=== PATIENT | female | born 1980 | race Hispanic/Latino ===

== ENCOUNTER 2024-09-15 18:41 | Inpatient (IN) | payer OTHER ==
[~2024-09-15] VITALS: Ht 162.6 cm; Wt 71.2 kg
[2024-09-15 19:27] LABS: AMNISURE ROM TEST POSITIVE
[2024-09-15] MEDS ORDERED: LACTATED RINGER'S 1,000 ML IV SCH (19:45)
[2024-09-15] MEDS ORDERED: CALCIUM CARBONATE 500 MG CHEW PO PRN ×2 (19:45→22:15)
[2024-09-15] MEDS ORDERED: LACTATED RINGER'S 1,000 ML IV PRN (19:45)
[2024-09-15] MEDS ORDERED: MAGNESIUM HYDROXIDE/AL HYDROX 30 ML CUP PO PRN ×2 (19:45→22:15)
[2024-09-15 19:50] LABS: HEMATOCRIT 41.1 % (35.0-50.0); HEMOGLOBIN 14.1 g/dL (12.0-18.0); MCH 30.3 (27-36); MCHC 34.2 g/dl (30-36); MCV 88.5 fl (81-99); RBC 4.64 M/ul (4.3-5.7)
[2024-09-15 19:57] VITALS: BP 121/82
[2024-09-15] MEDS ORDERED: OXYTOCIN/0.9 % SODIUM CHLORIDE 500 ML IV SCH ×3 (20:15→22:30)
[2024-09-15 20:19] LABS: ABO O; ANTIBODY SCREEN NEGATIVE; RH POSITIVE
[2024-09-15] MEDS ORDERED: TRANEXAMIC ACID IN NACL,ISO-OS 100 ML IV ONE (21:39)
[2024-09-15] MEDS ORDERED: MAGNESIUM HYDROXIDE 30 ML UDC PO PRN (22:15)
[2024-09-15] MEDS ORDERED: WITCH HAZEL/GLYCERIN 1 EA PAD TOP PRN (22:15)
[2024-09-15] MEDS ORDERED: LIDOCAINE 2% VISCOUS 6 ML SYR TOP ONE ×2 (22:15)
[2024-09-15] MEDS ORDERED: HYDROCORTISONE ACETATE 25 MG SUPP PR PRN (22:15)
[2024-09-15] MEDS ORDERED: BENZOCAINE 60 ML AEROSOL TOP PRN (22:15)
[2024-09-15] MEDS ORDERED: IBUPROFEN 600 MG TAB PO PRN (22:15)
[2024-09-15] MEDS ORDERED: ACETAMINOPHEN 325 MG TAB PO PRN (22:15)
[2024-09-15 23:48] LABS: AMPHETAMINES, URINE NEGATIVE (NEGATIVE); BARBITURATES, URINE NEGATIVE (NEGATIVE); BENZODIAZEPINE, URINE NEGATIVE (NEGATIVE); BUPRENORPHINE, URINE NEGATIVE (NEGATIVE); CANNABINOID, URINE NEGATIVE (NEGATIVE); COCAINE, URINE NEGATIVE (NEGATIVE); ECSTASY, URINE NEGATIVE (NEGATIVE); FENTANYL, URINE NEGATIVE (NEGATIVE); METHADONE, URINE NEGATIVE (NEGATIVE); OPIATES, URINE NEGATIVE (NEGATIVE); OXYCODONE, URINE NEGATIVE (NEGATIVE); PHENCYCLIDINE, URINE NEGATIVE (NEGATIVE)
[2024-09-16] MEDS ORDERED: METHYLERGONOVINE MALEATE 0.2 MG TAB PO SCH
[2024-09-16] MEDS ORDERED: fentaNYL citrate 100 MCG/2 ML VIAL IV STA (00:37)
[2024-09-16 01:14] LABS: HEMATOCRIT 33.4 % (35.0-50.0); HEMOGLOBIN 11.3 g/dL (12.0-18.0); MCH 29.8 (27-36); MCHC 33.9 g/dl (30-36); MCV 87.9 fl (81-99); PLATELET COUNT 204 K/uL (140-440); RDW 13.9 (10.5-15.0)
[2024-09-16] MEDS ORDERED: METHYLERGONOVINE MALEATE 0.2 MG/ML AMP IM ONE (01:15)
[2024-09-16 01:28] LABS: PARTIAL THROMBOPLASTIN TIME 25.5 Sec (22.9-41.3)
[2024-09-16 01:29] LABS: INR 0.98 (0.80-1.30); PROTIME 12.9 Sec (11.2-14.2)
[2024-09-16 01:37] LABS: ABO O; RH POSITIVE
[2024-09-16 01:45] LABS: IS CROSSMATCH COMPATIBLE
[2024-09-16 01:52] LABS: LYMPHOCYTES, MANUAL DIFF 2; MONOCYTES, MANUAL DIFF 6; NEUTROPHILS, MANUAL DIFF 92
[2024-09-16 04:04] LABS: BASOPHILS 0.1 % (0-2); HEMATOCRIT 30.6 % (35.0-50.0); HEMOGLOBIN 10.5 g/dL (12.0-18.0); LYMPHOCYTES 4.1 % (24-44); MCH 30.4 (27-36); MCHC 34.3 g/dl (30-36); MCV 88.5 fl (81-99); MONOCYTES 5.1 % (0-12); NEUTROPHILS 90.7 % (39-80); PLATELET COUNT 183 K/uL (140-440); RBC 3.46 M/ul (4.3-5.7)
[2024-09-16 04:13] LABS: PARTIAL THROMBOPLASTIN TIME 27.1 Sec (22.9-41.3)
[2024-09-16 04:14] LABS: INR 1.02 (0.80-1.30); PROTIME 13.3 Sec (11.2-14.2)
[2024-09-16] MEDS ORDERED: SENNOSIDES/DOCUSATE 1 EA TAB PO SCH (09:00)
[2024-09-17 05:50] LABS: HEMOGLOBIN 9.3 g/dL (12.0-18.0); MCH 30.5 (27-36); MCHC 34.6 g/dl (30-36); MCV 88.3 fl (81-99); RBC 3.06 M/ul (4.3-5.7); RDW 14.3 (10.5-15.0)
== END 2024-09-17 11:05 | disposition home or self-care (01) | DRG 807 ==
LOC: FBCO 18:41 → FBC 19:09
PROVIDERS: ADMIT Advanced Practice Midwife; ATTEND Advanced Practice Midwife
PROC: 10E0XZZ Delivery of Products of Conception, External Approach (ICD-10-PCS; principal; 2024-09-15)
DX: O23.42 Unspecified infection of urinary tract in pregnancy, second trimester (principal); Z37.0 Single live birth; O76 Abnormality in fetal heart rate and rhythm complicating labor and delivery; Z3A.38 38 weeks gestation of pregnancy; Z79.899 Other long term (current) drug therapy
CPT/HCPCS: 36415; 80307; 84112; 85025; 85027; 85610; 85730; 86850; 86900; 86901; 86922; A9270; J2210; J3010

== ENCOUNTER 2024-11-06 13:41 | Observation (INO) | payer OTHER ==
[~2024-11-06] VITALS: Ht 152.4 cm; Wt 63.7 kg
--- NOTE | ~2024-11-06 | OR ---
[address] [address] [place] DATE OF OPERATION: 11/06/2024 SURGEON: Tasia Mayfield DO PREOPERATIVE DIAGNOSES: 1. Delayed hemorrhage. 2. Retained products of conception. 3. Acute blood loss anemia. POSTOPERATIVE DIAGNOSES: 1. Delayed hemorrhage. 2. Retained products of conception. 3. Acute blood loss anemia. PROCEDURES PERFORMED: 1. Manual removal of retained products of conception. 2. Suction D and C. 3. Insertion of Shari uterine tamponade. ANESTHESIA: General. ESTIMATED BLOOD LOSS: 10 mL in the OR with blood loss 1269 mL. DRAINS: 1. Snyder to gravity. 2. Shari uterine tamponade system. SPECIMEN: Retained products of conception. INTRAOPERATIVE MEDICATIONS: Tranexamic acid, Cytotec 800 mg UT, IV oxytocin, 2 units of packed red blood cells, 2 units of FFP. COMPLICATIONS: None. INDICATIONS: PATIENT NAME: ROBB MOORE OPERATIVE REPORT DATE OF : 84 REPORT #: [id number] PHYSICIAN: TASIA MAYFIELD (ADDISON) PCP: TASIA MAYFIELD (ADDISON) REPORT IS CONFIDENTIAL AND NOT TO BE RELEASED WITHOUT AUTHORIZATION [facility] [address] [place] [id number] [place] Ms. Moore is a very pleasant 44-year-old multiparous female, who was approximately 7 weeks after spontaneous vaginal delivery. and delivery were uncomplicated. She reports that she has had nearly daily spotting bleeding since delivery. This morning the patient awoke to increased vaginal bleeding. Bleeding became severe and the patient was symptomatic and she presented to the emergency room department for further evaluation. In the emergency department, the patient with large amounts of vaginal bleeding with ER physician unable to visualize the cervix. The uterus was packed and initial hemoglobin was 11.8. Repeat hemoglobin 8.9 with noted tachycardia and hypotension. presented to the emergency department. I removed the vaginal packing, a large amount of vaginal bleeding with clots was noted. Bimanual exam demonstrated a dilated cervix approximately 4 cm with intrauterine lesion of retained products versus prolapsed fibroid. The patient was quickly consented for suction D and C and removal of retained products of conception. Risks, benefits, and alternatives were discussed in detail with the patient. The patient understands and wished to proceed with the procedure. DESCRIPTION OF PROCEDURE: The patient was taken the OR. A time-out was performed to confirm correct patient, correct procedure. General anesthesia was adequately established. The patient was prepped and draped in the dorsal lithotomy position with feet in Yellofin stirrups. ICPs were on and running and the patient received doxycycline 200 mg p.o. in the emergency department. Bloody packing and draping was weighed and 269 mL of blood were noted. The Snyder catheter was inserted. A weighted speculum was placed in vagina and the anterior lip of the cervix was grasped with a ring forceps and the posterior lip of the cervix was grasped with ring forceps. The intrauterine mass was grasped with a ring forceps and gently delivered without difficulty. Immediately upon delivery of the uterus became involuted and bleeding halted. A large suction curette was selected and advanced with gentle traction to the fundus. Circumferential curettage was performed in the green zone without additional products of conception. Digital exam of the intrauterine cavity demonstrated no additional products of conception. A Shari device was selected and inserted into the uterus and the vaginal/cervical cuff was instilled with 120 mL of sterile fluid per manufacture's instructions. This was then connected to wall suction at 80 mmHg. No additional bleeding was noted. The patient received the above intraoperative medications, fluids and blood products per hemorrhage protocol. The patient was monitored for any additional bleeding and none was noted. The patient was then taken to PACU in good and stable condition. Sponge, needle and instrument counts were correct x2 at the end of the procedure. PATIENT NAME: ROBB MOORE OPERATIVE REPORT DATE OF : 84 REPORT #: [id number] PHYSICIAN: TASIA MAYFIELD (ADDISON) PCP: TASIA MAYFIELD (ADDISON) DO REPORT IS CONFIDENTIAL AND NOT TO BE RELEASED WITHOUT AUTHORIZATION [facility] [address] [place], [place] [address] Draft DO GENET Mark/MTL /[id number] Copies: ~ PATIENT NAME: ROBB MOORE OPERATIVE REPORT DATE OF : 84 REPORT #: [id number] PHYSICIAN: TASIA MAYFIELD (ADDISON) PCP: TASIA MAYFIELD (ADDISON) DO REPORT IS CONFIDENTIAL AND NOT TO BE RELEASED WITHOUT AUTHORIZATION
[~2024-11-06 13:41] MED LIST: SEVOFLURANE 250 ML BTL INH ONE
[2024-11-06] MEDS ORDERED: TRANEXAMIC ACID IN NACL,ISO-OS 1,000 MG/100 ML PIGGYBACK IV ONE (14:00)
[2024-11-06 14:04] LABS: BASOPHILS 0.7 % (0-2); EOSINOPHILS 1.4 % (0-6); HEMATOCRIT 34.9 % (35.0-50.0); HEMOGLOBIN 11.8 g/dL (12.0-18.0); LYMPHOCYTES 22.3 % (24-44); MCHC 33.7 g/dl (30-36); MCV 86.1 fl (81-99); MONOCYTES 5.9 % (0-12); NEUTROPHILS 69.7 % (39-80); PLATELET COUNT 321 K/uL (140-440); RBC 4.05 M/ul (4.3-5.7); RDW 14.2 (10.5-15.0)
[2024-11-06 14:15] LABS: ANION GAP 15.3 (7-21); BUN/CREATININE RATIO 16.36 (6.0-28.6); CALCIUM 9.3 mg/dL (8.5-10.1); CREATININE, SERUM 1.1 mg/dL (0.55-1.02); POTASSIUM 3.3 mmol/L (3.5-5.1)
[2024-11-06 14:48] LABS: PARTIAL THROMBOPLASTIN TIME 22.9 Sec (22.9-41.3)
[2024-11-06 14:49] LABS: INR 1.06 (0.80-1.30); PROTIME 13.2 Sec (11.2-14.2)
[2024-11-06] MEDS ORDERED: DOXYCYCLINE HYCLATE 100 MG CAP PO ONE (15:00)
[2024-11-06] MEDS ORDERED: ROCURONIUM BROMIDE 50 MG/5 ML SYR ONE (15:09)
[2024-11-06] MEDS ORDERED: LIDOCAINE HCL 2% 5 ML SDV ONE (15:09)
[2024-11-06] MEDS ORDERED: propofoL 200 MG/20 ML VIAL ONE (15:09)
[2024-11-06] MEDS ORDERED: fentaNYL citrate 100 MCG/2 ML VIAL ONE (15:11)
[2024-11-06] MEDS ORDERED: TRANEXAMIC ACID 1,000 MG/10 ML AMP ONE (15:14)
[2024-11-06 15:20] LABS: BASOPHILS 0.4 % (0-2); EOSINOPHILS 0.6 % (0-6); HEMATOCRIT 26.9 % (35.0-50.0); HEMOGLOBIN 8.9 g/dL (12.0-18.0); LYMPHOCYTES 9.1 % (24-44); MCH 28.6 (27-36); MCHC 33.1 g/dl (30-36); MCV 86.4 fl (81-99); MONOCYTES 5.5 % (0-12); NEUTROPHILS 84.4 % (39-80); PLATELET COUNT 236 K/uL (140-440); RBC 3.11 M/ul (4.3-5.7); RDW 14.4 (10.5-15.0)
[2024-11-06] MEDS ORDERED: PHENYLEPHRINE HCL 10 MG/ML VIAL ONE (15:31)
[2024-11-06] MEDS ORDERED: OXYTOCIN 10 UNITS/ML VIAL ONE (15:31)
[2024-11-06] MEDS ORDERED: SUGAMMADEX SODIUM 200 MG/2 ML ML ONE (15:38)
[2024-11-06 15:47] LABS: ABO O; ANTIBODY SCREEN NEGATIVE; IS CROSSMATCH COMPATIBLE; RH POSITIVE
[2024-11-06 15:48] LABS: IS CROSSMATCH COMPATIBLE
[2024-11-06 15:56] LABS: IS CROSSMATCH COMPATIBLE
[2024-11-06] MEDS ORDERED: ondansetron HCL 4 MG/2 ML VIAL IV PRN (16:15)
[2024-11-06] MEDS ORDERED: OXYCODONE/APAP 5/325 TAB PO PRN (16:15)
[2024-11-06] MEDS ORDERED: NALOXONE HCL 0.4 MG SYR IV PRN (16:15)
[2024-11-06] MEDS ORDERED: FAMOTIDINE 20 MG TAB PO PRN (16:15)
[2024-11-06] MEDS ORDERED: METOCLOPRAMIDE HCL 10 MG/2 ML SDV IV PRN (16:15)
[2024-11-06] MEDS ORDERED: MAGNESIUM HYDROXIDE/AL HYDROX 30 ML CUP PO PRN (16:15)
[2024-11-06] MEDS ORDERED: IBUPROFEN 800 MG TAB PO PRN (16:15)
[2024-11-06] MEDS ORDERED: LACTATED RINGER'S 1,000 ML IV SCH (16:15)
[2024-11-06] MEDS ORDERED: SIMETHICONE 80 MG CHEW PO PRN (16:15)
[2024-11-06 16:56] VITALS: BP 104/70
[2024-11-06] MEDS ORDERED: SIMETHICONE 80 MG CHEW PO SCH (17:00)
--- NOTE | 2024-11-06 17:32 | NUR ---
11/06/24 1732 Shameka Devlin Elmer 1548- PT PRESENTS TO PACU, SEMI LA POSITION, NON REACTIVE TO STIMULUS. PT HAS OPA IN PLACE, REQUIRING JAW THRUST, O2 AT 6L PER MASK. ABD SOFT, NON DISTENDED. LUPILLO BEING HELD IN PLACE BY RN, PLACED ON WALL SUCTION AT 80 MMHG, NO BLEEDING NOTED AROUND. LR WITH 30 UNITS OF PITOCIN INFUSING TO RAC IV. JIANG CATHETER DRAINING CLEAR DILUTE URINE. ALL MONITORS IN PLACE. 1552- PT STARTING COUGHING, SOME EMESIS, SUCTION PERFORMED. OPA REMOVED, PT ROLLED ON TO RIGHT SIDE, CONTINUES TO HAVE SOLID FOOD EMESIS. AIRWAY IS PROTECTED AND MAINTAINED, SUCTION NEEDED. 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 1600- PT RESTING AT THIS TIME. 2ND LITER LR STARTED AT 125 ML/HR PER DR TORRES. 1610- PT DENIES PAIN OR NAUSEA, EXPLAINED THE LUPILLO TO THE PT AND ENCOURAGED TO RELAX PELVIC MUSCLES. MOVED TO ROOM AIR AT THIS TIME. 1620- PT CONTINUES TO REST, NO SIGNS OF DISTRESS. NO CHANGE IN STATUS. 1630- PT WAKES EASILY TO VERBAL STIMULI, EXPLAINED PLAN TO ADMIT TO [facility]. PT DENIES PAIN AND NAUSEA. 1640- PT TAKEN TO [facility] ROOM 107, MOVED FROM STRETCHER TO BED VIA SHEET LIFT. LUPILLO PLACED ON WALL SUCTION. JIANG CATHETER REMAINS IN PLACE. LR HANGING TKO TO LAC IV. PT WAKES EASILY. NO PAIN OR NAUSEA, AND BABY AT BEDSIDE. REPORT TO ELI LIZARRAGA AT BEDSIDE, CARE OF PT TURNED OVER AT THIS TIME.
[2024-11-06 18:12] LABS: BILIRUBIN, URINE NEGATIVE (negative); BLOOD/HGB, URINE NEGATIVE (Negative); KETONE, URINE NEGATIVE (Negative); LEUK ESTERASE, URINE NEGATIVE (negative); NITRITE, URINE NEGATIVE (negative); PH, URINE 5.5 (5-7)
[2024-11-06 18:21] LABS: HEMATOCRIT 32.4 % (35.0-50.0); HEMOGLOBIN 10.9 g/dL (12.0-18.0); MCH 28.4 (27-36); MCHC 33.6 g/dl (30-36); MCV 84.5 fl (81-99); RBC 3.84 M/ul (4.3-5.7); RDW 14.9 (10.5-15.0)
[2024-11-06 18:51] LABS: HEMATOCRIT 29.8 % (35.0-50.0); HEMOGLOBIN 10.1 g/dL (12.0-18.0); MCH 28.4 (27-36); MCHC 34.1 g/dl (30-36); MCV 83.4 fl (81-99); PLATELET COUNT 178 K/uL (140-440); RBC 3.57 M/ul (4.3-5.7); RDW 14.8 (10.5-15.0)
[2024-11-06 19:03] VITALS: BP 105/49
[2024-11-06 19:07] LABS: INR 1.14 (0.80-1.30); PROTIME 14.2 Sec (11.2-14.2)
[2024-11-07 05:37] LABS: HEMATOCRIT 24.8 % (35.0-50.0); HEMOGLOBIN 8.6 g/dL (12.0-18.0); MCHC 34.8 g/dl (30-36); MCV 83.4 fl (81-99); RBC 2.97 M/ul (4.3-5.7); RDW 14.9 (10.5-15.0)
[2024-11-07 05:52] LABS: ANION GAP 9.5 (7-21); BUN/CREATININE RATIO 13.48 (6.0-28.6); CALCIUM 8.1 mg/dL (8.5-10.1); CREATININE, SERUM 0.89 mg/dL (0.55-1.02); POTASSIUM 3.5 mmol/L (3.5-5.1)
[2024-11-07 11:59] LABS: HEMATOCRIT 26.8 % (35.0-50.0); HEMOGLOBIN 9.3 g/dL (12.0-18.0); MCH 28.6 (27-36); MCHC 34.5 g/dl (30-36); MCV 82.9 fl (81-99); RBC 3.24 M/ul (4.3-5.7)
[2024-11-08] MEDS ORDERED: SENNOSIDES/DOCUSATE 1 EA TAB PO ONE (08:30)
[2024-11-08] MEDS ORDERED: FERROUS SULFATE 325 MG TAB PO SCH (09:00)
--- NOTE | 2024-11-08 14:59 | PATH ---
[facility] [address] [place], [place] [address] Signed SPECIMEN(S): A PRODUCTS OF CONCEPTION SPECIMEN SOURCE: A. PRODUCTS OF CONCEPTION CLINICAL HISTORY: hemorrhage FINAL PATHOLOGIC DIAGNOSIS: Products of conception: - Fragments of chorionic villi with extensive degenerative changes and calcification. JVR:clv MICROSCOPIC EXAMINATION: Histologic sections of all submitted blocks are examined by light microscopy. These findings, together with the gross examination, support the pathologic diagnosis. GROSS DESCRIPTION: The specimen, labeled and designated "Sage Christensen, products of conception per requisition," is received in formalin and consists of a 4.8 x 4.4 x 3.1 cm aggregate of portions of placental tissue weighing approximately 28 g. Also present is a 6 x 4.8 x 1.2 cm aggregate of brown-red congealed blood. [employer] sections are submitted in cassette A1. AA (under the direct supervision of a pathologist) The Gross Description was prepared using a voice recognition system. The report was reviewed for accuracy; however, sound-alike word errors, addition and/or deletions may occur. If there is any question about this report, please contact Client Services. PERFORMING LABORATORY: Technical component was performed by [facility], [address] [place] [id number] (CLIA# [id number]). Professional interpretation was performed by [facility] - [facility], [address] [place] [id number] (CLIA#: [id number]). Diagnostician: Matthias Noonan MD Pathologist Electronically Signed 11/08/2024 PATIENT NAME: ROBB CHRISTENSEN PATHOLOGY DATE OF : 84 REPORT #: [id number] PHYSICIAN: [facility] PCP: TASIA TORRES) DO REPORT IS CONFIDENTIAL AND NOT TO BE RELEASED WITHOUT AUTHORIZATION [address] [address] Signed Copies: ~ PATIENT NAME: ROBB CHRISTENSEN PATHOLOGY DATE OF : 84 REPORT #: [id number] PHYSICIAN: [facility] PCP: TASIA TORRES (ADDISON) DO REPORT IS CONFIDENTIAL AND NOT TO BE RELEASED WITHOUT AUTHORIZATION
== END 2024-11-08 10:40 | disposition home or self-care (01) ==
LOC: ED 13:41 → DSVR 15:05 → MS 16:38 → FBC 17:24
PROVIDERS: Emergency Medicine; ADMIT Obstetrics & Gynecology; ATTEND Obstetrics & Gynecology
PROC: 0W3R7ZZ Control Bleeding in Genitourinary Tract, Via Natural or Artificial Opening (ICD-10-PCS; 2024-11-06)
PROC: 10D17ZZ Extraction of Products of Conception, Retained, Via Natural or Artificial Opening (ICD-10-PCS; principal; 2024-11-06 15:00)
DX: O72.2 Delayed and secondary postpartum hemorrhage (principal); D62 Acute posthemorrhagic anemia
CPT/HCPCS: 00940; 36415; 36430; 80048; 81003; 84703; 85025; 85027; 85060; 85379; 85384; 85610; 85730; 86850; 86900; 86901; 86922; 88305; J2003; J2371; J2590; J2704; J3010; J3490; J7121; P9016; P9059